=== PATIENT | male | born 1960 | race Caucasian/White ===

== ENCOUNTER 2023-11-17 08:45 | Day surgery (SDC) | payer MEDICARE ==
[~2023-11-17] VITALS: Ht 167.6 cm; Wt 67.5 kg
[~2023-11-17 08:45] MED LIST: BSS IRRIG/VANCO(10MG)/TOBRA(5MG)/EPINEPH(1:1000-0.5CC)500ML BAG-ORONLY As Ordered ONE; BUPR75TA5 PO; DIAZ5TAB PO; DULO1CAP5 PO; DULO1CAP6 PO; FENO160T10 PO; HYDR50TA70 PO; JANU100T PO; LEVO25TA5 PO; MIDAZOLAM INJ 2MG/2ML VIAL As Ordered ONE; PANT40TA29 PO; PHENYLEPHRINE 10% OPHTH SOL 5ML OS PRN; POTA1TAB23 PO; QUET50TA4 PO; SUCR1TAB56 PO; fentaNYL 100 MCG/2 ML INJECTION As Ordered ONE
[2023-11-17] MEDS: OFLOXACIN 0.3 % (OCUFLOX) OPTH SOL 5ML OS ONE (09:39)
[2023-11-17] MEDS: LIDOCAINE 3.5 % 1ML OPHTH TOPICAL GEL OU ONE (09:39)
[2023-11-17] MEDS: ATROPINE SULFATE 1% OPHTH SOLN 2ML BTL OS SCH (09:40)
[2023-11-17] MEDS: TROPICAMIDE 1% OPHTH SOLN 15ML OS SCH (09:40)
[2023-11-17] MEDS: PHENYLEPHRINE 2.5% OPHTH SOL 2ML OS SCH (09:40)
[2023-11-17] MEDS: LIDOCAINE 1% SDV 5ML VIAL As Ordered ONE (10:35)
[2023-11-17] MEDS: CEFUROXIME 1MG/0.1ML INTRACAMERAL INJ As Ordered ONE (10:35)
[2023-11-17 10:40] VITALS: BP 114/69; TEMP 98.7; O2SAT 97
[2023-11-17] MEDS ORDERED: MOXIFLOXACIN 0.6MG/0.4ML INTRAOCULAR SYRINGE As Ordered ONE (11:58)
== END 2023-11-17 10:56 | disposition home or self-care (01) ==
LOC: M SDC 08:45
PROVIDERS: ATTEND Ophthalmology
DX: H25.12 Age-related nuclear cataract, left eye (principal); E11.9 Type 2 diabetes mellitus without complications; I10 Essential (primary) hypertension; E03.9 Hypothyroidism, unspecified; F41.9 Anxiety disorder, unspecified; F32.A Depression, unspecified; K21.9 Gastro-esophageal reflux disease without esophagitis; Z79.899 Other long term (current) drug therapy
CPT/HCPCS: 66984; J0697; J2250; J3010; V2632

== ENCOUNTER 2023-12-01 06:14 | Day surgery (SDC) | payer MEDICARE ==
[~2023-12-01] VITALS: Ht 167.6 cm; Wt 69.9 kg
[~2023-12-01 06:14] MED LIST changes: -BSS IRRIG/VANCO(10MG)/TOBRA(5MG)/EPINEPH(1:1000-0.5CC)500ML BAG-ORONLY As Ordered ONE; -MIDAZOLAM INJ 2MG/2ML VIAL As Ordered ONE; +PHENYLEPHRINE 10% OPHTH SOL 5ML OD PRN; -PHENYLEPHRINE 10% OPHTH SOL 5ML OS PRN; -fentaNYL 100 MCG/2 ML INJECTION As Ordered ONE
[2023-12-01] MEDS ORDERED: MIDAZOLAM INJ 2MG/2ML VIAL As Ordered ONE (07:11)
[2023-12-01] MEDS ORDERED: fentaNYL 100 MCG/2 ML INJECTION As Ordered ONE (07:12)
[2023-12-01] MEDS: OFLOXACIN 0.3 % (OCUFLOX) OPTH SOL 5ML OD ONE (07:29)
[2023-12-01] MEDS: LIDOCAINE 3.5 % 1ML OPHTH TOPICAL GEL OU ONE (07:29)
[2023-12-01] MEDS: PHENYLEPHRINE 2.5% OPHTH SOL 2ML OD SCH (07:29)
[2023-12-01] MEDS: TROPICAMIDE 1% OPHTH SOLN 15ML OD SCH (07:29)
[2023-12-01] MEDS: ATROPINE SULFATE 1% OPHTH SOLN 2ML BTL OD SCH (07:29)
[2023-12-01] MEDS: BSS IRRIG/VANCO(10MG)/TOBRA(5MG)/EPINEPH(1:1000-0.5CC)500ML BAG-ORONLY As Ordered ONE (08:14)
[2023-12-01] MEDS: CEFUROXIME 1MG/0.1ML INTRACAMERAL INJ As Ordered ONE (08:14)
[2023-12-01] MEDS: LIDOCAINE 1% SDV 5ML VIAL As Ordered ONE (08:14)
[2023-12-01 08:28] VITALS: BP 111/63; TEMP 96.8; O2SAT 98
== END 2023-12-01 08:42 | disposition home or self-care (01) ==
LOC: M SDC 06:14
PROVIDERS: ATTEND Ophthalmology
DX: H25.11 Age-related nuclear cataract, right eye (principal); E11.9 Type 2 diabetes mellitus without complications; E03.9 Hypothyroidism, unspecified; K21.9 Gastro-esophageal reflux disease without esophagitis; F41.9 Anxiety disorder, unspecified; F32.A Depression, unspecified; Z79.899 Other long term (current) drug therapy; Z88.0 Allergy status to penicillin
CPT/HCPCS: 66984; J0697; J2250; J3010; V2632